=== PATIENT | female | born 1945 | race African-American/Black ===

== ENCOUNTER 2016-09-05 10:30 | Outpatient (RCR) | payer MEDICARE, OTHER | END 2016-09-18 | disposition home or self-care (01) | LOC: PTY 10:30 | DX: R26.9 Unspecified abnormalities of gait and mobility (principal); I10 Essential (primary) hypertension; I25.2 Old myocardial infarction; E11.9 Type 2 diabetes mellitus without complications; M19.90 Unspecified osteoarthritis, unspecified site; Z95.810 Presence of automatic (implantable) cardiac defibrillator | CPT/HCPCS: 97110; 97140; 97162; 97535; G8978; G8979 ==

== ENCOUNTER 2016-10-05 11:00 | Outpatient (RCR) | payer MEDICARE, OTHER | END 2016-10-19 | disposition home or self-care (01) | LOC: PTY 11:00 | DX: R26.9 Unspecified abnormalities of gait and mobility (principal) ==

== ENCOUNTER 2016-11-14 11:15 | Outpatient (RCR) | payer MEDICARE, OTHER | END 2016-11-18 | disposition home or self-care (01) | LOC: PTY 11:15 | DX: R26.9 Unspecified abnormalities of gait and mobility (principal); I10 Essential (primary) hypertension; I25.2 Old myocardial infarction; E11.9 Type 2 diabetes mellitus without complications; M19.90 Unspecified osteoarthritis, unspecified site; Z95.810 Presence of automatic (implantable) cardiac defibrillator ==

== ENCOUNTER 2016-12-07 11:00 | Outpatient (RCR) | payer MEDICARE, OTHER | END 2016-12-19 | disposition home or self-care (01) | LOC: PTY 11:00 | DX: R26.9 Unspecified abnormalities of gait and mobility (principal); I10 Essential (primary) hypertension; I25.2 Old myocardial infarction; E11.9 Type 2 diabetes mellitus without complications; M19.90 Unspecified osteoarthritis, unspecified site; Z95.810 Presence of automatic (implantable) cardiac defibrillator; M25.50 Pain in unspecified joint; Z91.81 History of falling | CPT/HCPCS: 97110; 97140; G8978; G8979 ==